=== PATIENT | female | born 1955 | race Hispanic/Latino ===

== ENCOUNTER 2021-06-19 11:24 | Inpatient (IN) | payer BC, OTHER ==
[~2021-06-19] VITALS: Ht 152.4 cm; Wt 61.7 kg
[~2021-06-19 11:24] MED LIST: ASPIR 8181 MG PO; COLESTIPOL HCL1 GM PO; CYCLOBENZAPRINE10 MG PO; DICYCLOMINE HCL20 MG PO; GLIPIZIDE5 MG PO; IMMODIUM PO; INVOKANA; LOSARTAN POTAS100 MG PO; METRONIDAZOLE500 MG PO; ORTHO D PO; SIMVASTATIN40 MG PO; VICTOZA 2-0.6 MG/0.1
[2021-06-19] MEDS ORDERED: NAPROXEN250 MG PO (14:09)
[2021-06-19] MEDS ORDERED: PREDNISONE20 MG PO (14:09)
[2021-06-19] MEDS ORDERED: MORPHINE SULFATE INJ 2 MG/ML SYR IV PRN (16:00)
[2021-06-19 16:09] LABS: BASOPHILS % 0.2 % (0.0-1.0); EOSINOPHILS # (AUTO) 0.2 (0.0-0.4); EOSINOPHILS % 2.2 % (0.0-6.0); HEMATOCRIT 43.6 % (34.2-44.1); HEMOGLOBIN 13.7 g/dL (12.0-16.0); LYMPHOCYTES # (AUTO) 1.6 (1.0-3.2); LYMPHOCYTES % 19.3 % (18.0-39.1); MEAN CORPUSCULAR HEMOGLOBIN 28.1 pg (28-32); MEAN CORPUSCULAR HGB CONC 31.4 g/dL (31-35); MEAN CORPUSCULAR VOLUME 89.3 fL (81-99); MONOCYTES # (AUTO) 0.9 (0.2-0.8); MONOCYTES % 10.4 % (4.4-11.3); NEUTROPHILS # (AUTO) 5.7 (2.1-6.9); NEUTROPHILS % 67.5 % (38.7-80.0); PLATELET COUNT 139 x10e3/uL (140-360); RED BLOOD COUNT 4.88 x10e6/uL (3.6-5.1); RED CELL DISTRIBUTION WIDTH 14.2 % (11.7-14.4)
[2021-06-19 16:21] LABS: ALBUMIN 3.9 g/dL (3.5-5.0); ALBUMIN/GLOBULIN RATIO 1.1 (0.8-2.0); CALCIUM 9.3 mg/dL (8.4-10.2); CREATININE, SERUM 0.64 mg/dL (0.57-1.11)
[2021-06-19] MEDS: SODIUM CHLORIDE 0.9% 1000ML 1,000 ML IV SCH (16:31)
[2021-06-19] MEDS: ONDANSETRON HCL INJ 2MG/ML 2ML 2 MG/ML VIAL IV PRN ×3 (16:31→23:52)
[2021-06-19] MEDS: MORPHINE SULFATE INJ 4 MG/ML INJ 1ML IV PRN ×2 (16:55→23:52)
[2021-06-19 19:30] VITALS: BP 152/71
[2021-06-19] MEDS ORDERED: HYDRALAZINE HCL 20 MG/ML VIAL IV PRN (20:15)
[2021-06-19] MEDS ORDERED: ACETAMINOPHEN 325 MG TAB PO PRN (20:15)
[2021-06-19 20:30] VITALS: BP 152/71
[2021-06-19] MEDS: INSULIN LISPRO 100 UNIT/1 ML 3ML VIAL SQ SCH (23:14)
[2021-06-20 00:05] VITALS: BP 160/72
[2021-06-20] MEDS ORDERED: TRESIBA100 UNIT/1 (00:37)
[2021-06-20] MEDS ORDERED: METFORMIN HCL500 MG PO (00:37)
[2021-06-20] MEDS: SODIUM CHLORIDE 0.9% 1000ML 1,000 ML IV SCH (03:45)
[2021-06-20 04:00] VITALS: BP 144/61
[2021-06-20 05:07] LABS: BASOPHILS % 0.4 % (0.0-1.0); EOSINOPHILS # (AUTO) 0.1 (0.0-0.4); EOSINOPHILS % 1.6 % (0.0-6.0); HEMATOCRIT 39.3 % (34.2-44.1); HEMOGLOBIN 12.9 g/dL (12.0-16.0); LYMPHOCYTES # (AUTO) 1.1 (1.0-3.2); LYMPHOCYTES % 15.6 % (18.0-39.1); MEAN CORPUSCULAR HEMOGLOBIN 29.1 pg (28-32); MEAN CORPUSCULAR HGB CONC 32.8 g/dL (31-35); MEAN CORPUSCULAR VOLUME 88.7 fL (81-99); MONOCYTES # (AUTO) 0.7 (0.2-0.8); MONOCYTES % 9.9 % (4.4-11.3); NEUTROPHILS # (AUTO) 5.3 (2.1-6.9); NEUTROPHILS % 72.2 % (38.7-80.0); PLATELET COUNT 123 x10e3/uL (140-360); RED BLOOD COUNT 4.43 x10e6/uL (3.6-5.1); RED CELL DISTRIBUTION WIDTH 13.7 % (11.7-14.4)
[2021-06-20 05:17] LABS: INR 0.98; PROTHROMBIN TIME 13.6 seconds (11.9-14.5)
[2021-06-20 05:23] LABS: PARTIAL THROMBOPLASTIN TIME 29.2 seconds (23.8-35.5)
[2021-06-20 05:31] LABS: ANION GAP 10.6 mmol/L (8-16); CALCIUM 8.1 mg/dL (8.4-10.2); CREATININE, SERUM 0.55 mg/dL (0.57-1.11); POTASSIUM 3.6 mmol/L (3.5-5.1)
[2021-06-20] MEDS: INSULIN LISPRO 100 UNIT/1 ML 3ML VIAL SQ SCH ×3 (07:30→16:30)
[2021-06-20 07:46] VITALS: BP 139/57
[2021-06-20 08:17] VITALS: BP 139/57
[2021-06-20] MEDS: ONDANSETRON HCL INJ 2MG/ML 2ML 2 MG/ML VIAL IV PRN ×2 (08:58→15:08)
[2021-06-20] MEDS: MORPHINE SULFATE INJ 4 MG/ML INJ 1ML IV PRN ×2 (08:58→15:08)
[2021-06-20] MEDS ORDERED: ASPIRIN 81 MG ENTERIC COATED PO SCH (09:00)
[2021-06-20] MEDS ORDERED: LOSARTAN POTASSIUM 100 MG TAB PO SCH (09:00)
[2021-06-20 09:24] LABS: CHOL/HDL RATIO 2.6 (3.0-3.6)
[2021-06-20 09:48] LABS: THYROID STIMULATING HORMONE 1.907 uIU/mL (0.350-4.940)
[2021-06-20] MEDS: CARVEDILOL 12.5 MG TAB PO SCH ×2 (10:18→16:53)
[2021-06-20 11:36] VITALS: BP 118/58
[2021-06-20] MEDS ORDERED: HYDROCODON-ACE1 EAC9 PO (14:36)
[2021-06-20 16:01] VITALS: BP 126/57
[2021-06-20] MEDS ORDERED: ATORVASTATIN 40 MG TAB PO SCH (21:00)
== END 2021-06-20 17:50 | disposition home or self-care (01) | DRG 536 ==
LOC: ER 11:57 → ERHOLD 15:52 → MED/SURG 20:30
PROVIDERS: ADMIT Internal Medicine; ATTEND Internal Medicine
DX: S32.592A Other specified fracture of left pubis, initial encounter for closed fracture (principal); S32.19XA Other fracture of sacrum, initial encounter for closed fracture; S79.912A Unspecified injury of left hip, initial encounter; W19.XXXA Unspecified fall, initial encounter; E11.9 Type 2 diabetes mellitus without complications; I10 Essential (primary) hypertension
CPT/HCPCS: 36415; 72192; 80048; 80053; 80061; 82948; 83880; 84443; 85025; 85610; 85730; 93005; 93306; 93880; 96372; 97139; 99284; J2270; J2405; J7030